=== PATIENT | male | born 1960 | race Caucasian/White ===

== ENCOUNTER → 2017-08-30 | Outpatient (CLI) | payer MEDICARE, BC, OTHER ==
[2017-08-30 11:06] LABS: HEMATOCRIT 47.2 % (42.0-52.0); HEMOGLOBIN 15.8 g/dl (13.5-17.5); MEAN CORPUSCULAR HEMOGLOBIN 31.7 pg (27.0-33.0); MEAN CORPUSCULAR HGB CONC 33.5 g/dl (32.0-36.5); MEAN CORPUSCULAR VOLUME 94.8 fl (80.0-96.0); PLATELET COUNT, AUTOMATED 240 10^3/uL (150-450); RED BLOOD COUNT 4.98 10^6/uL (4.30-6.10); RED CELL DISTRIBUTION WIDTH 12.7 % (11.5-14.5); WHITE BLOOD COUNT 7.6 10^3/uL (4.0-10.0)
[2017-08-30 11:33] LABS: TESTOSTERONE 429 NG/DL (241-827)
[2017-08-30 11:36] LABS: ESTIMATED AVERAGE GLUCOSE 137 MG/DL (60-110); HEMOGLOBIN A1c 6.4 %
[2017-08-30 11:43] LABS: ALBUMIN/GLOBULIN RATIO 1.18 (1.00-1.93); ALKALINE PHOSPHATASE 54 U/L (45-117); ALT/SGPT 51 U/L (12-78); ANION GAP 5 MEQ/L (8-16); AST/SGOT 35 U/L (7-37); BILIRUBIN,TOTAL 0.8 MG/DL (0.2-1.0); BLOOD UREA NITROGEN 12 MG/DL (7-18); CALCIUM LEVEL 9.2 MG/DL (8.5-10.1); CARBON DIOXIDE LEVEL 29 MEQ/L (21-32); CHLORIDE LEVEL 107 MEQ/L (98-107); CHOLESTEROL LEVEL 174 MG/DL (<200); CHOLESTEROL RISK RATIO 4.142 (<5); CREATININE FOR GFR 0.78 MG/DL (0.70-1.30); GLOMERULAR FILTRATION RATE > 60.0 (>56); GLUCOSE, FASTING 96 MG/DL (70-100); HDL CHOLESTEROL 42 MG/DL (>40); NON-HDL-C 132 MG/DL; POTASSIUM SERUM 4.4 MEQ/L (3.5-5.1); PROSTATIC SPECIFIC AG MONITOR 0.79 NG/ML (< 4.0); SODIUM LEVEL 141 MEQ/L (136-145); TOTAL PROTEIN 7.4 GM/DL (6.4-8.2); TRIGLYCERIDES LEVEL 125 MG/DL (<150)
== END ==
LOC: M LAB 10:08
DX: I10 Essential (primary) hypertension (principal); R53.83 Other fatigue; N40.0 Benign prostatic hyperplasia without lower urinary tract symptoms; Z79.899 Other long term (current) drug therapy
CPT/HCPCS: 71046

== ENCOUNTER → 2019-03-17 | Outpatient (CLI) | payer MEDICARE, BC, OTHER ==
--- NOTE | 2019-03-17 12:10 | REP ---
Clinical: Hypertension . Comparison: 08/30/2017 . Technique: PA and lateral. Findings: The mediastinum and cardiac silhouette are normal. The lung rodarte demonstrate minimal chronic changes at the left base without acute consolidation, effusion, or pneumothorax. The skeletal structures are intact and normal. Impression: 1. No acute cardiopulmonary process. Electronically Signed by Shahid Sosa MD 03/17/2019 12:01 P
--- NOTE | 2019-03-18 08:02 | ECGEPIP ---
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
== END ==
LOC: M EKG 11:40
PROVIDERS: ATTEND Family Medicine
DX: Z01.818 Encounter for other preprocedural examination (principal); I10 Essential (primary) hypertension

== ENCOUNTER → 2019-03-18 | Outpatient (CLI) | payer MEDICARE, BC, OTHER ==
[2019-03-18 12:34] LABS: HEMATOCRIT 49.8 % (42.0-52.0); HEMOGLOBIN 16.3 g/dl (13.5-17.5); MEAN CORPUSCULAR HEMOGLOBIN 31.4 pg (27.0-33.0); MEAN CORPUSCULAR HGB CONC 32.7 g/dl (32.0-36.5); PLATELET COUNT, AUTOMATED 293 10^3/uL (150-450); RED BLOOD COUNT 5.19 10^6/uL (4.30-6.10)
[2019-03-18 12:51] LABS: INR 1.07; PROTHROMBIN TIME 13.6 SECONDS (11.8-14.0)
[2019-03-18 13:13] LABS: ALBUMIN 3.7 GM/DL (3.2-5.2); ALT/SGPT 59 U/L (12-78); BILIRUBIN,TOTAL 0.7 MG/DL (0.2-1.0); BLOOD UREA NITROGEN 13 MG/DL (7-18); CALCIUM LEVEL 9.7 MG/DL (8.5-10.1); CARBON DIOXIDE LEVEL 31 MEQ/L (21-32); CHLORIDE LEVEL 103 MEQ/L (98-107); CHOLESTEROL LEVEL 192 MG/DL (<200); CHOLESTEROL RISK RATIO 4.465 (<5); CREATININE FOR GFR 0.78 MG/DL (0.70-1.30); GLOMERULAR FILTRATION RATE > 60.0 (>56); GLUCOSE, FASTING 94 MG/DL (70-100); HDL CHOLESTEROL 43 MG/DL (>40); LDL CHOLESTEROL 110 MG/DL (<100); NON-HDL-C 149 MG/DL; POTASSIUM SERUM 4.4 MEQ/L (3.5-5.1); PROSTATIC SPECIFIC AG MONITOR 1.12 NG/ML (< 4.00); SODIUM LEVEL 141 MEQ/L (136-145); TOTAL PROTEIN 7.2 GM/DL (6.4-8.2); TRIGLYCERIDES LEVEL 194 MG/DL (<150)
== END ==
LOC: M LAB 10:34
PROVIDERS: ATTEND Family Medicine
DX: Z01.818 Encounter for other preprocedural examination (principal); I10 Essential (primary) hypertension; N40.0 Benign prostatic hyperplasia without lower urinary tract symptoms

== ENCOUNTER 2020-04-17 10:15 | Emergency (ER) | payer MEDICARE, BC, OTHER ==
[~2020-04-17] VITALS: Ht 177.8 cm; Wt 125.6 kg
[2020-04-17] MEDS ORDERED: METO50TA7 (10:24)
[2020-04-17] MEDS ORDERED: CEPH500C (10:24)
[2020-04-17] MEDS ORDERED: TRIA37.53 (10:24)
[2020-04-17 11:34] LABS: BASO # 0.1 10^3/uL (0.0-0.2); BASO % 0.9 % (0.0-1.0); EOS # 0.2 10^3/uL (0.0-0.5); EOS % 1.4 % (0.0-3.0); HEMATOCRIT 49.9 % (42.0-52.0); HEMOGLOBIN 15.9 g/dl (13.5-17.5); LYMPH # 2.1 10^3/uL (1.5-5.0); LYMPH % 18.3 % (24.0-44.0); MEAN CORPUSCULAR HEMOGLOBIN 32.4 pg (27.0-33.0); MEAN CORPUSCULAR HGB CONC 31.9 g/dl (32.0-36.5); MEAN CORPUSCULAR VOLUME 101.6 fl (80.0-96.0); MONO # 1.5 10^3/uL (0.0-0.8); MONO % 13.1 % (0.0-5.0); NEUTROPHILS # 7.5 10^3/uL (1.5-8.5); NEUTROPHILS % 65.5 % (36.0-66.0); PLATELET COUNT, AUTOMATED 373 10^3/uL (150-450); RED BLOOD COUNT 4.91 10^6/uL (4.30-6.10); WHITE BLOOD COUNT 11.5 10^3/uL (4.0-10.0)
[2020-04-17 11:57] LABS: ERYTHROCYTE SEDIMENTATION RATE 34 mm/hr (0-20)
[2020-04-17 12:13] VITALS: BP 156/90
--- NOTE | 2020-04-17 12:18 | REP ---
INDICATION: lateral left sided foot pain, worse with weight bearing COMPARISON: None. TECHNIQUE: AP, lateral, bilateral oblique views left foot. FINDINGS: Age-related osteopenia and generalized degenerative changes are appreciated. Overlying soft tissue swelling at the ankle noted. No obvious acute fracture or dislocation identified. IMPRESSION: Soft tissue swelling and generalized age-related changes.. No acute fracture or dislocation. <Electronically signed by Shahid Sosa > 04/17/20 [id number]
== END 2020-04-17 12:52 | disposition home or self-care (01) ==
LOC: M ED 10:15
DX: L03.116 Cellulitis of left lower limb (principal); M79.672 Pain in left foot; I10 Essential (primary) hypertension

== ENCOUNTER → 2020-05-11 | Outpatient (CLI) | payer MEDICARE, BC, OTHER ==
[~2020-05-11] MED LIST: CEPH500C; METO50TA7; TRIA37.53
--- NOTE | 2020-05-11 14:34 | REP ---
INDICATION: LT LEG PAIN SWELLING ? DVT. COMPARISON: None. TECHNIQUE: Left lower extremity duplex venous ultrasound exam. FINDINGS: The common femoral vein and femoral vein segments of the left lower extremity are anechoic and fully compressible on two-dimensional scanning. Color flow and spectral Doppler interrogation are unremarkable. However, the study is positive in the popliteal vein where there is nonocclusive thrombus along 1 wall of the popliteal vein. Color flow and pulse Doppler are interrogation show preservation of flow. IMPRESSION: Positive exam for a small zone of nonocclusive mural thrombus involving the left popliteal vein. Otherwise negative.. <Electronically signed by Gonzalo Luis > 05/11/20 [id number]
== END ==
LOC: M RAD 13:32
PROVIDERS: ATTEND Family Medicine
DX: M79.605 Pain in left leg (principal)

== ENCOUNTER → 2020-12-30 | Outpatient (CLI) | payer MEDICARE, BC, OTHER ==
--- NOTE | 2020-12-30 10:24 | REP ---
INDICATION: HTN *LABS 1ST, EKG 2ND, XRY 3RD* COMPARISON: 03/17/2019. TECHNIQUE: PA/Lateral FINDINGS: Lungs: There is no evidence of acute infiltrate. There is mild bibasilar fibro atelectatic change with mild stable elevation of the right hemidiaphragm. Heart: Normal in size. Mediastinum: Mediastinal silhouette unremarkable. Pleural angles: Unremarkable.. Bones and soft tissues: There are diffuse degenerative changes of the spine with no compression fracture. There is metallic fixation in the lower cervical spine. IMPRESSION: No acute pulmonary disease. <Electronically signed by Candelario Preston > 12/30/20 [id number]
[2020-12-30 11:29] LABS: HEMATOCRIT 48.7 % (42.0-52.0); MEAN CORPUSCULAR HEMOGLOBIN 32.3 pg (27.0-33.0); MEAN CORPUSCULAR HGB CONC 32.9 g/dl (32.0-36.5); MEAN CORPUSCULAR VOLUME 98.2 fl (80.0-96.0); PLATELET COUNT, AUTOMATED 342 10^3/uL (150-450); RED BLOOD COUNT 4.96 10^6/uL (4.30-6.10)
[2020-12-30 12:33] LABS: ALBUMIN 3.8 GM/DL (3.2-5.2); ALT/SGPT 30 U/L (12-78); BILIRUBIN,TOTAL 0.6 MG/DL (0.2-1.0); BLOOD UREA NITROGEN 14 MG/DL (7-18); CALCIUM LEVEL 9.4 MG/DL (8.8-10.2); CARBON DIOXIDE LEVEL 29 MEQ/L (21-32); CHLORIDE LEVEL 104 MEQ/L (98-107); CHOLESTEROL LEVEL 193 MG/DL (<200); CHOLESTEROL RISK RATIO 4.825 (<5); CREATININE FOR GFR 0.81 MG/DL (0.70-1.30); GLOMERULAR FILTRATION RATE > 60.0 (>49); GLUCOSE, FASTING 79 MG/DL (70-100); HDL CHOLESTEROL 40 MG/DL (>40); LDL CHOLESTEROL 119 MG/DL (<100); NON-HDL-C 153 MG/DL; POTASSIUM SERUM 4.6 MEQ/L (3.5-5.1); SODIUM LEVEL 140 MEQ/L (136-145); TESTOSTERONE 379 NG/DL (241-827); TOTAL PROTEIN 6.9 GM/DL (6.4-8.2); TRIGLYCERIDES LEVEL 168 MG/DL (<150)
[2020-12-30 12:34] LABS: PROSTATIC SPECIFIC AG MONITOR 1.18 NG/ML (< 4.00); TOTAL 25(OH) VITAMIN D 19.5 NG/ML (30.0-100.0)
[2020-12-30 13:44] LABS: HEMOGLOBIN A1c 5.8 %
--- NOTE | 2020-12-30 19:21 | ECGEPIP ---
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
== END ==
LOC: M LAB 09:21
PROVIDERS: ATTEND Family Medicine
DX: I10 Essential (primary) hypertension (principal); R53.83 Other fatigue; E03.9 Hypothyroidism, unspecified

== ENCOUNTER → 2021-02-18 | Outpatient (CLI) | payer MEDICARE, BC, OTHER ==
[~2021-02-18] MED LIST changes: +FISH1000 PO; +METO1TAB87; +PURE500C5 PO; +VITMTA PO
== END ==
LOC: M LABSMTC 10:06
PROVIDERS: ATTEND Anesthesiology
DX: Z01.812 Encounter for preprocedural laboratory examination (principal); Z20.822 Contact with and (suspected) exposure to COVID-19

== ENCOUNTER → 2022-02-01 | Outpatient (CLI) | payer MEDICARE, BC, OTHER ==
[~2022-02-01] MED LIST changes: -TRIA37.53; +TRIA37.577
== END ==
LOC: M RAD 07:00
PROVIDERS: ATTEND Family Medicine
DX: R19.06 Epigastric swelling, mass or lump (principal); D64.9 Anemia, unspecified; K76.0 Fatty (change of) liver, not elsewhere classified

== ENCOUNTER → 2022-04-18 | Outpatient (CLI) | payer MEDICARE, BC, OTHER ==
[~2022-04-18] MED LIST changes: +ASCO500C3 PO; -PURE500C5 PO
[2022-04-18 08:03] LABS: HEMATOCRIT 48.5 % (42.0-52.0); MEAN CORPUSCULAR HEMOGLOBIN 31.2 pg (27.0-33.0); MEAN CORPUSCULAR VOLUME 94.5 fl (80.0-96.0); PLATELET COUNT, AUTOMATED 253 10^3/uL (150-450); RED BLOOD COUNT 5.13 10^6/uL (4.30-6.10)
[2022-04-18 08:17] LABS: INR 0.94; PROTHROMBIN TIME 12.8 SECONDS (12.5-14.5)
[2022-04-18 08:31] LABS: THYROID STIMULATING HORMONE 2.319 uIU/ML (0.55-4.78)
[2022-04-18 08:51] LABS: ALBUMIN 3.8 G/DL (3.2-5.2); ALKALINE PHOSPHATASE 51 U/L (46-116); ALT/SGPT 40 U/L (7.0-40); AST/SGOT 34 U/L (<34); BILIRUBIN,TOTAL 0.7 MG/DL (0.3-1.2); BLOOD UREA NITROGEN 15 MG/DL (9-23); CALCIUM LEVEL 9.3 MG/DL (8.3-10.6); CARBON DIOXIDE LEVEL 27 MMOL/L (20-31); CHLORIDE LEVEL 104 MMOL/L (98-107); CHOLESTEROL LEVEL 180 MG/DL (<200); CHOLESTEROL RISK RATIO 5.21 (<5); CREATININE FOR GFR 0.75 MG/DL (0.70-1.30); GLOMERULAR FILTRATION RATE > 60.0 (>49); GLUCOSE, FASTING 99 MG/DL (74-106); HDL CHOLESTEROL 34.5 MG/DL (>40); LDL CHOLESTEROL 111.7 MG/DL (<100); NON-HDL-C 146 MG/DL; POTASSIUM SERUM 4.3 MMOL/L (3.5-5.1); SODIUM LEVEL 141 MMOL/L (136-145); TOTAL PROTEIN 6.6 G/DL (5.7-8.2); TRIGLYCERIDES LEVEL 169 MG/DL (<150)
[2022-04-18 09:00] LABS: HEMOGLOBIN A1c 5.8 % (4.0-6.0)
== END ==
LOC: M RAD 07:14
PROVIDERS: ATTEND Family Medicine
DX: I10 Essential (primary) hypertension (principal); R53.83 Other fatigue; E03.9 Hypothyroidism, unspecified; R94.31 Abnormal electrocardiogram [ECG] [EKG]

== ENCOUNTER 2024-04-18 15:20 | Emergency (ER) | payer MEDICARE, BC, OTHER ==
[~2024-04-18] VITALS: Ht 177.8 cm; Wt 147.1 kg
[~2024-04-18 15:20] MED LIST changes: +DOXA1TAB42 PO; +ECOT81TA5 PO; +MELO15TA28 PO; +METO50TA7 PO; -TRIA37.577; +TRIA37.577 PO
[2024-04-18 15:32] VITALS: TEMP 97.3
[2024-04-18] MEDS ORDERED: OXYMETAZOLINE 0.05% NASAL SPRAY (AFRIN) ONE (18:30)
[2024-04-18] MEDS: SILVER NITRATE APPLICATOR (1 = QTY 10) TOP ONE (19:25)
[2024-04-18] MEDS: OXYMETAZOLINE 0.05% NASAL SPRAY (AFRIN) ONE (20:36)
[2024-04-18 20:37] VITALS: BP 185/113
[2024-04-18] MEDS: hydrALAZINE 20MG/ML 1ML VIAL IV ONE (20:37)
[2024-04-18] MEDS: AUGMENTIN 875 MG TAB PO ONE (20:37)
[2024-04-18] MEDS: METOPROLOL TART 50 MG TAB PO ONE (20:37)
[2024-04-18 21:27] VITALS: O2SAT 94
[2024-04-18 21:36] VITALS: BP 158/92
[2024-04-18] MEDS: OXYCODONE/APAP 5MG/325MG(HOME DOSE PACK) PO ONE (21:43)
[2024-04-19] MEDS ORDERED: ALLO300T2 PO (08:41)
[2024-04-19] MEDS ORDERED: ERGO500029 PO (08:41)
== END 2024-04-18 21:44 | disposition home or self-care (01) ==
LOC: M ED 15:20
DX: R04.0 Epistaxis (principal); I10 Essential (primary) hypertension; Z79.82 Long term (current) use of aspirin; Z79.899 Other long term (current) drug therapy
CPT/HCPCS: 30901; 96374; 99284; J0360

== ENCOUNTER 2024-04-19 02:32 | Observation (INO) | payer MEDICARE, BC, OTHER ==
[2024-04-19] VITALS (9 sets, daily range): BP systolic 125–147; BP diastolic 72–87; TEMP 97–98.2; O2SAT 87–95
[~2024-04-19] VITALS: Ht 177.8 cm; Wt 127.3 kg
[2024-04-19] MEDS: MATE ADAPTER IV ONE (03:28)
[2024-04-19] MEDS: D5W IV ONE (03:28)
[2024-04-19] MEDS: atenoloL 50 MG TAB PO ONE (03:28)
[2024-04-19] MEDS: TRANEXAMIC ACID IV ONE (03:28)
[2024-04-19 03:31] LABS: BASO # 0.1 10^3/uL (0.0-0.2); BASO % 0.5 % (0.0-1.0); EOS # 0.1 10^3/uL (0.0-0.5); EOS % 0.9 % (0.0-3.0); HEMATOCRIT 40.5 % (42.0-52.0); HEMOGLOBIN 13.5 g/dl (13.5-17.5); LYMPH % 17.1 % (24.0-44.0); MEAN CORPUSCULAR HEMOGLOBIN 32.8 pg (27.0-33.0); MEAN CORPUSCULAR HGB CONC 33.3 g/dl (32.0-36.5); MEAN CORPUSCULAR VOLUME 98.3 fl (80.0-96.0); MONO # 1.2 10^3/uL (0.0-0.8); MONO % 10.6 % (2.0-8.0); NEUTROPHILS # 8.2 10^3/uL (1.5-8.5); PLATELET COUNT, AUTOMATED 203 10^3/uL (150-450); RED BLOOD COUNT 4.12 10^6/uL (4.30-6.10); WHITE BLOOD COUNT 11.7 10^3/uL (4.0-10.0)
[2024-04-19 03:47] LABS: INR 1.04; PARTIAL THROMBOPLASTIN TIME 26.6 SECONDS (24.8-34.2); PROTHROMBIN TIME 13.9 SECONDS (12.5-14.5)
[2024-04-19 03:53] LABS: BLOOD UREA NITROGEN 33 MG/DL (9-23); CALCIUM LEVEL 9.3 MG/DL (8.3-10.6); CARBON DIOXIDE LEVEL 28 MMOL/L (20-31); CHLORIDE LEVEL 104 MMOL/L (98-107); GLOMERULAR FILTRATION RATE > 60.0 (>49); GLUCOSE, FASTING 130 MG/DL (74-106); POTASSIUM SERUM 3.7 MMOL/L (3.5-5.1); SODIUM LEVEL 142 MMOL/L (136-145)
[2024-04-19] MEDS ORDERED: MIDAZOLAM INJ 2MG/2ML VIAL As Ordered ONE (08:18)
[2024-04-19] MEDS ORDERED: fentaNYL 100 MCG/2 ML INJECTION As Ordered ONE (08:24)
[2024-04-19] MEDS ORDERED: LIDOCAINE 2% 100MG/5ML SDV (FOR ANES.) As Ordered ONE (08:26)
[2024-04-19] MEDS ORDERED: propofoL 200 MG/20 ML VIAL As Ordered ONE (08:26)
[2024-04-19] MEDS ORDERED: ROCURONIUM BROMIDE 50MG/5ML VIAL As Ordered ONE (08:26)
[2024-04-19] MEDS ORDERED: SUGAMMADEX SODIUM 500 MG/5 ML VIAL (BRIDION) As Ordered ONE (08:26)
[2024-04-19] MEDS ORDERED: ONDANSETRON 4MG 2ML VIAL As Ordered ONE (08:27)
[2024-04-19] MEDS ORDERED: ERGO500029 PO (08:41)
[2024-04-19] MEDS ORDERED: ALLO300T2 PO (08:41)
[2024-04-19] MEDS ORDERED: HOME MED LIST COMPLETE! XX SCH (08:45)
[2024-04-19] MEDS: EPINEPHrine 1MG/10ML SYRINGE 1.5IN As Ordered ONE (10:19)
[2024-04-19] MEDS: EPINEPHrine 1MG/ML INJ 30ML MD-VIAL As Ordered ONE (10:41)
[2024-04-19] MEDS: BACITRACIN OINTMENT 30GM TUBE As Ordered ONE (11:21)
[2024-04-19] MEDS ORDERED: SUCCINYLCHOLINE 100MG/5ML SYRINGE As Ordered ONE (11:43)
[2024-04-19] MEDS ORDERED: MOM 30ML SUSPENSION UDC PO PRN (12:25)
[2024-04-19] MEDS ORDERED: ACETAMINOPHEN 325 MG TAB PO PRN (12:25)
[2024-04-19] MEDS: AUGMENTIN 875 MG TAB PO SCH (13:31)
[2024-04-19] MEDS: LR 1,000 ML IV SCH (13:31)
[2024-04-19] MEDS: DOCUSATE SODIUM 100MG CAPSULE PO SCH (20:59)
[2024-04-19] MEDS: METOPROLOL TART 50 MG TAB PO SCH (20:59)
[2024-04-19] MEDS: SODIUM CHLORIDE NASAL 0.65% SPRAY BTL (OCEAN) SCH (21:00)
[2024-04-19] MEDS: ASPIRIN 81MG ENTERIC TABLET PO SCH (21:00)
[2024-04-19] MEDS: RAMELTEON 8 MG TAB (ROZEREM) PO PRN (23:42)
[2024-04-20] VITALS: BP 128/77; TEMP 97.2; O2SAT 91
[2024-04-20 04:00] VITALS: BP 131/78; TEMP 97.7; O2SAT 92
[2024-04-20 05:21] LABS: HEMATOCRIT 35.1 % (42.0-52.0); HEMOGLOBIN 11.6 g/dl (13.5-17.5); MEAN CORPUSCULAR HEMOGLOBIN 32.9 pg (27.0-33.0); MEAN CORPUSCULAR VOLUME 99.4 fl (80.0-96.0); PLATELET COUNT, AUTOMATED 178 10^3/uL (150-450); RED BLOOD COUNT 3.53 10^6/uL (4.30-6.10); WHITE BLOOD COUNT 11.7 10^3/uL (4.0-10.0)
[2024-04-20] MEDS: allopurinoL 300 MG TAB PO SCH (08:16)
[2024-04-20 08:17] VITALS: BP 131/85
[2024-04-20] MEDS: MELOXICAM (MOBIC) 7.5 MG TAB PO SCH (08:17)
[2024-04-20] MEDS: DOXAZOSIN MESYLATE 1 MG TAB PO SCH (08:17)
[2024-04-20] MEDS: DYAZIDE 37.5/25 CAP (TRIAM/HCTZ) PO SCH (08:17)
[2024-04-20] MEDS ORDERED: AMOX875T2 PO (09:43)
[2024-04-20] MEDS ORDERED: AMLO1TAB24 PO (09:43)
[2024-04-20] MEDS ORDERED: Sodium Chloride Nasal Spray (09:45)
[2024-04-20] MEDS ORDERED: AMLO1TAB25 PO (09:47)
[2024-04-24] MEDS ORDERED: VITAMIN D 50,000 UNITS CAPSULE (ERGOCALCIFEROL 1.25MG) PO SCH (09:00)
== END 2024-04-20 13:01 | disposition home or self-care (01) ==
LOC: EDBD 02:32 → M ED 02:32 → M SDC 02:33 → M RR INP 02:34 → M MSPAV 12:49
PROVIDERS: ADMIT Student in an Organized Health Care Education/Training Program; ATTEND Otolaryngology
DX: R04.0 Epistaxis (principal); I10 Essential (primary) hypertension; G47.33 Obstructive sleep apnea (adult) (pediatric); M10.9 Gout, unspecified; N40.0 Benign prostatic hyperplasia without lower urinary tract symptoms; Z96.653 Presence of artificial knee joint, bilateral; Z79.82 Long term (current) use of aspirin; Z79.899 Other long term (current) drug therapy; E55.9 Vitamin D deficiency, unspecified; M54.9 Dorsalgia, unspecified; G89.29 Other chronic pain
CPT/HCPCS: 31238; 36415; 71045; 80048; 85025; 85027; 85610; 85730; 93005; 96361; 96365; 96375; 99285; A6024; G0378; J0171; J0330; J1100; J2250; J2405; J3010

== ENCOUNTER → 2024-04-23 | Outpatient (CLI) | payer MEDICARE, BC, OTHER ==
[~2024-04-23] MED LIST changes: +ALLO300T2 PO; +AMLO1TAB24 PO; +AMLO1TAB25 PO; +AMOX875T2 PO; +ERGO500029 PO; +Sodium Chloride Nasal Spray
[2024-04-23 11:06] LABS: HEMATOCRIT 38.9 % (42.0-52.0); HEMOGLOBIN 12.5 g/dl (13.5-17.5); MEAN CORPUSCULAR HEMOGLOBIN 32.6 pg (27.0-33.0); MEAN CORPUSCULAR HGB CONC 32.1 g/dl (32.0-36.5); MEAN CORPUSCULAR VOLUME 101.3 fl (80.0-96.0); PLATELET COUNT, AUTOMATED 201 10^3/uL (150-450); RED BLOOD COUNT 3.84 10^6/uL (4.30-6.10); WHITE BLOOD COUNT 10.6 10^3/uL (4.0-10.0)
[2024-04-23 11:33] LABS: ALBUMIN 3.5 G/DL (3.2-5.2); ALKALINE PHOSPHATASE 49 U/L (40-129); ALT/SGPT 63 U/L (7.0-40); AST/SGOT 49 U/L (<34); BILIRUBIN,TOTAL 0.7 MG/DL (0.3-1.2); BLOOD UREA NITROGEN 13 MG/DL (9-23); CALCIUM LEVEL 9.8 MG/DL (8.3-10.6); CARBON DIOXIDE LEVEL 30 MMOL/L (20-31); CHLORIDE LEVEL 103 MMOL/L (98-107); CHOLESTEROL LEVEL 183 MG/DL (<200); CHOLESTEROL RISK RATIO 3.64 (<5); CREATININE FOR GFR 0.79 MG/DL (0.70-1.30); GLOMERULAR FILTRATION RATE > 60.0 (>49); GLUCOSE, FASTING 101 MG/DL (74-106); HDL CHOLESTEROL 50.2 MG/DL (>40); LDL CHOLESTEROL 105.8 MG/DL (<100); NON-HDL-C 132.8 MG/DL; POTASSIUM SERUM 4.1 MMOL/L (3.5-5.1); PROSTATIC SPECIFIC AG MONITOR 1.47 NG/ML (< 4.00); SODIUM LEVEL 141 MMOL/L (136-145); TOTAL PROTEIN 6.4 G/DL (5.7-8.2); TRIGLYCERIDES LEVEL 135 MG/DL (<150)
[2024-04-23 11:34] LABS: THYROID STIMULATING HORMONE 0.603 uIU/ML (0.55-4.78)
[2024-04-23 11:35] LABS: TESTOSTERONE 305 NG/DL (241-827)
== END ==
LOC: M LAB 08:30
PROVIDERS: ATTEND Family Medicine
DX: I10 Essential (primary) hypertension (principal); D64.9 Anemia, unspecified; R53.83 Other fatigue; E03.9 Hypothyroidism, unspecified; Z79.899 Other long term (current) drug therapy

== ENCOUNTER → 2024-10-23 | Outpatient (CLI) | payer MEDICARE, BC ==
[2024-10-23 07:56] LABS: PLATELET COUNT, AUTOMATED 198 10^3/uL (150-450)
[2024-10-23 08:35] LABS: ESTIMATED AVERAGE GLUCOSE 126.0 MG/DL (60-110)
[2024-10-23 09:03] LABS: ALT/SGPT 40 U/L (7.0-40); AST/SGOT 24 U/L (<34); CALCIUM LEVEL 9.4 MG/DL (8.3-10.6); CARBON DIOXIDE LEVEL 30 MMOL/L (20-31); CHLORIDE LEVEL 105 MMOL/L (98-107); CHOLESTEROL LEVEL 176 MG/DL (<200); CHOLESTEROL RISK RATIO 3.13 (<5); CREATININE FOR GFR 0.73 MG/DL (0.70-1.30); GLOMERULAR FILTRATION RATE > 90.0 (>49); LDL CHOLESTEROL 104.4 MG/DL (<100); NON-HDL-C 119.8 MG/DL; POTASSIUM SERUM 3.9 MMOL/L (3.5-5.1); PROSTATIC SPECIFIC AG MONITOR 1.74 NG/ML (< 4.00); SODIUM LEVEL 144 MMOL/L (136-145); TOTAL 25(OH) VITAMIN D 69.1 NG/ML (20.0-100.0); TRIGLYCERIDES LEVEL 77 MG/DL (<150)
== END ==
LOC: M RAD 07:03
PROVIDERS: ATTEND Family Medicine
DX: I10 Essential (primary) hypertension (principal); R53.83 Other fatigue; E03.9 Hypothyroidism, unspecified; Z79.899 Other long term (current) drug therapy

== ENCOUNTER 2024-12-09 09:37 | Inpatient (IN) | payer MEDICARE, BC ==
[~2024-12-09] VITALS: Ht 177.8 cm; Wt 132.4 kg
[2024-12-09] MEDS ORDERED: TRAM50TA2 OP (09:52)
[2024-12-09] MEDS ORDERED: TORS20TA2 PO (09:52)
[2024-12-09 11:26] LABS: BASO # 0.1 10^3/uL (0.0-0.2); BASO % 0.6 % (0.0-1.0); EOS # 0.0 10^3/uL (0.0-0.5); EOS % 0.3 % (0.0-3.0); LYMPH # 1.8 10^3/uL (1.5-5.0); LYMPH % 14.2 % (24.0-44.0); MONO # 1.6 10^3/uL (0.0-0.8); MONO % 12.3 % (2.0-8.0); NEUTROPHILS # 9.0 10^3/uL (1.5-8.5); NEUTROPHILS % 71.9 % (36.0-66.0); PLATELET COUNT, AUTOMATED 315 10^3/uL (150-450)
[2024-12-09 11:57] LABS: ALT/SGPT 49 U/L (7.0-40); AST/SGOT 41 U/L (<34); CALCIUM LEVEL 9.0 MG/DL (8.3-10.6); CARBON DIOXIDE LEVEL 32 MMOL/L (20-31); CHLORIDE LEVEL 96 MMOL/L (98-107); CREATININE FOR GFR 0.75 MG/DL (0.70-1.30); GLOMERULAR FILTRATION RATE > 90.0 (>49); POTASSIUM SERUM 3.1 MMOL/L (3.5-5.1); SODIUM LEVEL 143 MMOL/L (136-145)
[2024-12-09] MEDS ORDERED: ISOVUE-370 76% 100 ML VIAL As Ordered ONE (12:13)
[2024-12-09 12:31] LABS: INR 1.01
[2024-12-09] MEDS: APIXABAN 5 MG TAB PO ONE (14:01)
[2024-12-09] MEDS ORDERED: MED REC COMMENT (14:15)
[2024-12-09] MEDS ORDERED: HOME MED LIST COMPLETE! XX SCH (14:20)
[2024-12-09] MEDS ORDERED: ACETAMINOPHEN 325 MG TAB PO PRN (14:30)
[2024-12-09] MEDS ORDERED: MAALOX 30 ML SUSP *UDC PO PRN (14:30)
[2024-12-09 16:06] VITALS: BP 168/92; TEMP 98.5; O2SAT 96
[2024-12-09] MEDS ORDERED: traMADol 50 MG TAB PO PRN (16:20)
[2024-12-09] MEDS: amLODIPine 5 MG TAB PO ONE (17:13)
[2024-12-09] MEDS: POTASSIUM CHLORIDE 10MEQ SR TABLET PO ONE ×2 (17:36→23:07)
[2024-12-09] MEDS: FUROSEMIDE 40 MG/4 ML VIAL IV ONE (17:37)
[2024-12-09] MEDS: ALBUTEROL 90 MCG/ACT 8 GM HFA INHALER INH SCH (19:54)
[2024-12-09 20:14] VITALS: BP 168/82; TEMP 97.6; O2SAT 93
[2024-12-09] MEDS: APIXABAN 5 MG TAB PO SCH (20:15)
[2024-12-09] MEDS: DOCUSATE SODIUM 100 MG CAPSULE PO SCH (20:16)
[2024-12-09] MEDS: amLODIPine 5 MG TAB PO SCH (20:16)
[2024-12-09 22:41] LABS: MAGNESIUM LEVEL 1.2 MG/DL (1.8-2.4); POTASSIUM SERUM 3.1 MMOL/L (3.5-5.1)
[2024-12-09] MEDS: MAG SULF 1GM/100ML (MAG RUN) 1 GM in IV 1 EA IV SCH (23:06)
[2024-12-09] MEDS: KCL 10MEQ/100ML SWI (KRUN) 10 MEQ in IV 1 EA IV ONE (23:06)
[2024-12-09] MEDS: RAMELTEON 8 MG TAB PO PRN (23:07)
[2024-12-09 23:35] VITALS: BP 141/81; TEMP 97.5; O2SAT 91
[2024-12-10] VITALS (7 sets, daily range): BP systolic 125–170; BP diastolic 70–96; TEMP 97–97.8; O2SAT 91–94
[2024-12-10 07:39] LABS: BASO # 0.1 10^3/uL (0.0-0.2); BASO % 0.8 % (0.0-1.0); EOS # 0.0 10^3/uL (0.0-0.5); EOS % 0.4 % (0.0-3.0); LYMPH # 1.7 10^3/uL (1.5-5.0); LYMPH % 18.5 % (24.0-44.0); MONO # 1.1 10^3/uL (0.0-0.8); MONO % 12.2 % (2.0-8.0); NEUTROPHILS # 6.3 10^3/uL (1.5-8.5); NEUTROPHILS % 67.3 % (36.0-66.0); PLATELET COUNT, AUTOMATED 288 10^3/uL (150-450)
[2024-12-10 08:10] LABS: CALCIUM LEVEL 8.7 MG/DL (8.3-10.6); CARBON DIOXIDE LEVEL 34 MMOL/L (20-31); CHLORIDE LEVEL 102 MMOL/L (98-107); CREATININE FOR GFR 0.69 MG/DL (0.70-1.30); GLOMERULAR FILTRATION RATE > 90.0 (>49); MAGNESIUM LEVEL 1.8 MG/DL (1.8-2.4); POTASSIUM SERUM 3.4 MMOL/L (3.5-5.1); SODIUM LEVEL 145 MMOL/L (136-145)
[2024-12-10] MEDS: POTASSIUM CHLORIDE 10MEQ SR TABLET PO SCH (08:16)
[2024-12-10] MEDS: TORSEMIDE 20 MG TAB PO SCH (08:17)
[2024-12-10] MEDS: FUROSEMIDE 40 MG/4 ML VIAL IV ONE (11:09)
[2024-12-10] MEDS: POTASSIUM CHLORIDE 10MEQ SR TABLET PO ONE (12:12)
[2024-12-10] MEDS ORDERED: ELIQ5TAB PO (15:27)
[2024-12-10] MEDS ORDERED: AMLO1TAB25 PO (15:32)
[2024-12-10] MEDS ORDERED: VENTAER INH (16:26)
[2024-12-10] MEDS ORDERED: POTA10CA70 PO (18:07)
[2024-12-10] MEDS ORDERED: amLODIPine 10 MG TAB PO SCH (21:00)
[2024-12-10 23:43] LABS: CARDIOLIPIN IGA ANTIBODY 6.4 APL-U/mL (<20.0); CARDIOLIPIN IGG ANTIBODY < 2.0 GPL-U/mL (<20.0); CARDIOLIPIN IGM ANTIBODY 2.4 MPL-U/mL (<20.0)
[2024-12-11 09:46] LABS: DRVV SCREEN 39.9 SECONDS
[2024-12-11 09:51] LABS: PTT LUPUS TYPE ANTICOAG SCREEN 1.06 (0-1.20)
[2024-12-12 19:38] LABS: PHOSPHOLIPIDS LEVEL 188 mg/dL (151-264)
[2024-12-13 02:07] LABS: PROTEIN C FUNCTIONAL ACTIVITY 118 % normal (70-180); PROTEIN S FUNCTIONAL ACTIVITY 87 % normal (70-150)
[2024-12-13 03:13] LABS: ANTI THROMBIN 3 ANTIGEN IMMUNO 102 % normal (80-120); ANTI THROMBIN 3 FUNCT ACTIVITY 114 % normal (80-135)
[2024-12-15 16:42] LABS: FACTOR V LEIDEN FOR MEDINET NEGATIVE
[2024-12-16] MEDS ORDERED: APIXABAN 5 MG TAB PO SCH (09:00)
[2024-12-17 18:42] LABS: FACTOR II PROTHROMBIN GENE AN NEGATIVE
== END 2024-12-10 18:20 | disposition home or self-care (01) | DRG 176 ==
LOC: M ED 09:37 → M ED INP 14:28 → M PCU 15:40
PROVIDERS: ADMIT Internal Medicine Nephrology; ATTEND Internal Medicine Nephrology
DX: I26.99 Other pulmonary embolism without acute cor pulmonale (principal); I82.413 Acute embolism and thrombosis of femoral vein, bilateral; Z68.41 Body mass index [BMI] 40.0-44.9, adult; I10 Essential (primary) hypertension; E66.01 Morbid (severe) obesity due to excess calories; I16.0 Hypertensive urgency; E87.6 Hypokalemia; Z79.899 Other long term (current) drug therapy; M10.9 Gout, unspecified; K57.90 Diverticulosis of intestine, part unspecified, without perforation or abscess without bleeding; N40.0 Benign prostatic hyperplasia without lower urinary tract symptoms; Z96.641 Presence of right artificial hip joint; Z96.653 Presence of artificial knee joint, bilateral; G47.33 Obstructive sleep apnea (adult) (pediatric)